=== PATIENT | female | born 1975 | race Caucasian/White ===

== ENCOUNTER 2016-10-20 15:35 | Emergency (ER) | payer OTHER ==
[~2016-10-20] VITALS: Ht 160 cm; Wt 40.0 kg
[2016-10-20 15:37] VITALS: Ht 160 cm; Wt 40.0 kg
--- NOTE | 2016-10-20 15:56 | EMERGENCY ROOM VISIT NOTE ---
History Report prepared by Iman: Li Banks Under the Supervision of: Dr. Jose Angel Lima M.D. First contact with patient: 15:40 Chief Complaint: SWELLING TO EXTREMITY Stated Complaint: SWOLLEN ANKLES, COUGH, SOB History of Present Illness The patient is a 41 year old female who presents to the Emergency Room with complaints of persistent bilateral ankle swelling that began two days ago. The patient states that three days ago she got a sunburn to her bilateral legs. She reports that the next day she woke up with pain to her bilateral ankles and then developed the swelling. The patient denies any past medical history of diabetes, congestive heart failure, UT, thyroid issue, asthma, PE, DVT, or COPD. She denies any recent increase in salt intake, change in medication or diet, or recent travel. The patient states that she is a smoker. She reports a recent weight gain over the last few weeks, but does state that she has eaten more than usual. The patient reports a family history of diabetes. She notes a history of a lymph node removed from her right groin as a child. She denies any recent fever, but states that the day she obtained the sunburn she additionally had chills. The patient reports that she does not urinate often and denies any change in urination. Source of History: patient Onset: two days ago Position: ankle (bilateral) Quality: other (swelling) Timing: other (persistent) Associated Symptoms: + chills, No fevers Note: Associated Symptoms: recent sunburn Review of Systems See HPI for pertinent positives & negatives. A total of 10 systems reviewed and were otherwise negative. Past Medical & Surgical Medical Problems: (1) Bronchitis Family History Cancer Diabetes mellitus FH: heart disease FHx: gallbladder disease FHx: lung disease Hypertension Kidney disease Kidney stones Seizures Social History Smoking Status: Current Every Day Smoker Alcohol Use: none Marital Status: single Occupation Status: employed Current/Historical Medications No Active Prescriptions or Reported Meds Allergies Coded Allergies: No Known Allergies (Unverified , 10/20/16) Physical Exam Vital Signs Date Time Temp Pulse Resp B/P (MAP) Pulse Ox O2 Delivery O2 Flow Rate FiO2 10/20/16 16:59 67 18 128/72 97 Room Air 10/20/16 15:37 36.8 111 16 141/84 95 Room Air Physical Exam GENERAL: Patient is in no acute distress. HEENT: No acute trauma, normocephalic atraumatic, mucous membranes moist, no nasal congestion, no scleral icterus. NECK: No stridor, no adenopathy, no meningismus, trachea is midline. LUNGS: Clear to auscultation bilaterally, no wheeze, no rhonchi, breath sounds equal. HEART: Without murmurs gallops or rubs, regular rate and rhythm. ABDOMEN: Soft, nontender, bowel sounds positive, no hernias, no peritonitis. EXTREMITIES: Mild bilateral pedal edema, no evidence of acute trauma. NEUROLOGIC: Oriented x 3, no acute motor or sensory deficits, no focal weakness. SKIN: First degree sun burn to lower extremities bilaterally. No jaundice or cellulitis. Medical Decision & Procedures ER Provider Diagnostic Interpretation: US results as stated below per my review and radiologist interpretation: ULTRASOUND VENOUS DOPPLER LWR EXT BILA CLINICAL HISTORY: Bilateral leg swelling COMPARISON STUDY: February 2007 FINDINGS: Real-time and color flow Doppler imaging were performed. Flow was seen within the femoral, popliteal and calf veins with no intraluminal thrombus demonstrated. The saphenous vein is patent. IMPRESSION: No evidence of lower extremity DVT. Electronically signed by: Stewart Valencia M.D. 10/20/2016 4:39 PM Dictated Date/Time: 10/20/2016 4:39 PM Laboratory Results 10/20/16 16:05 10/20/16 16:05 Test 10/20/16 15:57 10/20/16 16:05 Urine Color YELLOW Urine Appearance CLEAR (CLEAR) Urine pH 6.5 (4.5-7.5) Urine Specific [place] 1.013 (1.000-1.030) Urine Protein NEG (NEG) Urine Glucose (UA) NEG (NEG) Urine Ketones NEG (NEG) Urine Occult Blood 2+ (NEG) Urine Nitrite NEG (NEG) Urine Bilirubin NEG (NEG) Urine Urobilinogen NEG (NEG) Urine Leukocyte Esterase NEG (NEG) Urine WBC (Auto) 1-5 /hpf (0-5) Urine RBC (Auto) 0-4 /hpf (0-4) Urine Hyaline Casts (Auto) 1-5 /lpf (0-5) Urine Epithelial Cells (Auto) 10-20 /lpf (0-5) Urine Bacteria (Auto) NEG (NEG) Urine Test NEG (NEG) Red Blood Count 4.37 M/uL (4.2-5.4) Mean Corpuscular Volume 98.2 fL (80-100) Mean Corpuscular Hemoglobin 33.0 pg (25-34) Mean Corpuscular Hemoglobin Concent 33.6 g/dl (32-36) RDW Standard Deviation 46.8 fL (36.4-46.3) RDW Coefficient of Variation 12.9 % (11.5-14.5) Mean Platelet Volume 8.5 fL (7.4-10.4) Anion Gap 8.0 mmol/L (3-11) Est Creatinine Clear Calc Drug Dose 58.0 ml/min Estimated GFR () 106.3 Estimated GFR (Non- 91.7 BUN/Creatinine Ratio 16.2 (10-20) Calcium Level 8.4 mg/dl (8.5-10.1) Total Bilirubin 0.2 mg/dl (0.2-1) Aspartate Amino Transf (AST/SGOT) 15 U/L (15-37) Alanine Aminotransferase (ALT/SGPT) 19 U/L (12-78) Alkaline Phosphatase 58 U/L (45-117) Total Protein 7.6 gm/dl (6.4-8.2) Albumin 4.0 gm/dl (3.4-5.0) Globulin 3.6 gm/dl (2.5-4.0) Albumin/Globulin Ratio 1.1 (0.9-2) Thyroid Stimulating Hormone (TSH) 0.705 uIu/ml (0.300-4.500) Laboratory results reviewed by me. ED Course 1543: The patient was evaluated in room A3. A complete history and physical exam was performed. 1709: I reevaluated the patient and she is doing well. I discussed the exam findings with her and I discussed the treatment plan. She verbalized complete understanding and agreement. She is ready to go home. Medical Decision The patient is a 41 year old female who presents to the ED with complaints of bilateral ankle swelling. Differential diagnoses considered include thyroid disorder, UTI, renal failure, electrolyte imbalance, edema, venous insufficiency , DVT. There is no leukocytosis or concerning anemia. No significant electrolyte abnormality, kidney failure or hepatitis. The patient appears to be in a euthyroid state. Urinalysis does not show infection. testing is negative. Bilateral lower extremity ultrasound shows no evidence for DVT. On exam, the patient was not toxic or febrile. The patient's edema is likely just from the sunburn, she was reassured. She is being discharged to avoid salt in the diet, elevation of the legs was suggested. If worsening, she can return. Medication Reconciliation: I attest that I have personally reviewed the patient' s current medication list and she is not currently on any medications. Blood Pressure Screening: Patient was found to have normal blood pressure on screening and does not require follow-up. Impression Primary Impression: Pedal edema Additional Impression: Sunburn Scribe Attestation The scribe's documentation has been prepared under my direction and personally reviewed by me in its entirety. I confirm that the note above accurately reflects all work, treatment, procedures, and medical decision making performed by me. Departure Information Dispostion Home / Self-Care Prescriptions No Active Prescriptions or Reported Meds Referrals No Doctor, Assigned (PCP) Forms HOME CARE DOCUMENTATION FORM, IMPORTANT VISIT INFORMATION Patient Instructions My [facility] [employer] Additional Instructions avoid salt in the diet try to stay off of the feet and keep the legs elevated lab testing and imaging was all ok today Problem Qualifiers
[2016-10-20 16:09] LABS: URINE APPEARANCE CLEAR (CLEAR); URINE BILIRUBIN NEG (NEG); URINE COLOR YELLOW; URINE NITRITE NEG (NEG); URINE PH 6.5 (4.5-7.5); URINE SPECIFIC GRAVITY 1.013 (1.000-1.030); UROBILINOGEN NEG (NEG)
[2016-10-20 16:10] LABS: MANUAL MICROSCOPIC REQUIRED? NO; REVIEW REQ? NO
[2016-10-20 16:15] LABS: HEMATOCRIT 42.9 % (37-47); MEAN CELL VOLUME 98.2 fL (80-100); MEAN CORPUSCULAR HGB CONC 33.6 g/dl (32-36); MEAN PLATELET VOLUME 8.5 fL (7.4-10.4); PLATELET COUNT 240 K/uL (130-400); RED BLOOD COUNT 4.37 M/uL (4.2-5.4); WHITE BLOOD COUNT 8.66 K/uL (4.8-10.8)
[2016-10-20 16:31] LABS: BUN/CREATININE RATIO 16.2 (10-20); CALCIUM 8.4 mg/dl (8.5-10.1); CREATININE 0.79 mg/dl (0.60-1.20); POTASSIUM 3.7 mmol/L (3.5-5.1)
--- NOTE | 2016-10-20 16:41 | DIAGNOSTIC IMAGING REPORT ---
ULTRASOUND VENOUS DOPPLER LWR EXT BILA CLINICAL HISTORY: Bilateral leg swelling COMPARISON STUDY: February 2007 FINDINGS: Real-time and color flow Doppler imaging were performed. Flow was seen within the femoral, popliteal and calf veins with no intraluminal thrombus demonstrated. The saphenous vein is patent. IMPRESSION: No evidence of lower extremity DVT. Electronically signed by: Stewart Valencia M.D. 10/20/2016 4:39 PM Dictated Date/Time: 10/20/2016 4:39 PM
[2016-10-20 16:42] LABS: ALB/GLOB RATIO 1.1 (0.9-2); THYROID STIMULATING HORMONE 0.705 uIu/ml (0.300-4.500)
[2016-10-20 17:50] VITALS: BP 122/85; PULSE 63; TEMP 36.8; O2SAT 95
== END 2016-10-20 17:49 | disposition home or self-care (01) ==
LOC: C.EDB 15:36 → C.EDA 17:49
DX: R60.0 Localized edema (principal); L55.0 Sunburn of first degree; F17.200 Nicotine dependence, unspecified, uncomplicated; Z87.09 Personal history of other diseases of the respiratory system; Z98.890 Other specified postprocedural states; Z83.3 Family history of diabetes mellitus; Z82.49 Family history of ischemic heart disease and other diseases of the circulatory system; Z84.1 Family history of disorders of kidney and ureter; Z82.0 Family history of epilepsy and other diseases of the nervous system

== ENCOUNTER 2017-01-31 16:36 | Emergency (ER) | payer SELFPAY ==
[~2017-01-31] VITALS: Ht 160 cm; Wt 40.0 kg
[2017-01-31 16:38] VITALS: TEMP 37.1; Ht 160 cm; Wt 40.0 kg
[2017-01-31] MEDS ORDERED: PRVHFAIN INH (16:52)
[2017-01-31] MEDS ORDERED: IBUPROFEN 600 MG TAB PO STA (17:37)
--- NOTE | 2017-01-31 17:52 | DIAGNOSTIC IMAGING REPORT ---
R FOOT MIN 3 VIEWS ROUTINE CLINICAL HISTORY: right foot pain - hit by a door trauma COMPARISON: None. DISCUSSION: The bones and joint spaces appear intact. There is no evidence of fracture, dislocation or bony disease. There is no evidence for soft tissue swelling. IMPRESSION: Negative study. The above report was generated using voice recognition software. It may contain grammatical, syntax or spelling errors. Electronically signed by: Manuel Archibald M.D. 01/31/2017 5:50 PM Dictated Date/Time: 01/31/2017 5:50 PM
--- NOTE | 2017-01-31 17:53 | DIAGNOSTIC IMAGING REPORT ---
R ANKLE MIN 3 VIEWS ROUTINE CLINICAL HISTORY: Right ankle pain trauma. Pain. COMPARISON: None. DISCUSSION: The bones and joint spaces appear intact. There is no evidence of fracture, dislocation or bony disease. There is no evidence for soft tissue swelling. IMPRESSION: Negative study. The above report was generated using voice recognition software. It may contain grammatical, syntax or spelling errors. Electronically signed by: Manuel Archibald M.D. 01/31/2017 5:51 PM Dictated Date/Time: 01/31/2017 5:51 PM
--- NOTE | 2017-01-31 18:07 | EMERGENCY ROOM VISIT NOTE ---
ED Visit Note First contact with patient: 16:55 CHIEF COMPLAINT: Foot pain HISTORY OF PRESENT ILLNESS: This 42-year-old female patient presents to the emergency department, ambulatory, complaining of swelling and pain in the right foot at rest and worse with weight bearing. The patient states she was at home, assisting EMS and PD by opening a heavy front door this morning. She states when she opened the door, it hit her right foot and scraped the top of her foot. She states a few hours later, she noticed that she was experiencing pain in the right foot. She states the pain is worse with palpation, but now is also experiencing pain up into the lubin and into the foot. The patient rates the pain as excruciating and 10/10. The patient has not had relief of the pain with OTC Tylenol and Advil. The patient is able to walk, but states this significantly worsens her pain. No numbness or weakness. There are no lacerations of the foot. The patient is able to move all of their toes and their ankle, but this does cause pain. No previous fracture to this foot. REVIEW OF SYSTEMS: GENERAL: A 6 system review of systems was completed with positives and pertinent negatives in the HPI. ALLERGIES: None MEDICATIONS: Albuterol PMH: Asthma SOCIAL HISTORY: The patient lives locally. She admits to smoking one pack of cigarettes per day. She also admits to heavy marijuana use. The patient denies any alcohol use. PHYSICAL EXAM: Vital Signs: Reviewed Nurse's notes, vital signs stable. GENERAL : This is a 42-year-old female, in no acute distress, but appears in pain, well- developed, well-nourished. MUSCULOSKELATAL: There is no visual deformity of the right foot. There is no erythema or ecchymosis. There is no warmth. There is tenderness and swelling over the entire right foot and ankle on palpation. The patient withdraws significantly from pain on even the slightest touch. There is severe tenderness over the lateral or medial malleolus. There is tenderness of the tib/fib. The range of motion of the foot, ankle, knee, toes is significantly limited secondary to pain. There is no tenderness over the plantar fascia. The skin is intact and there are no lacerations or puncture wounds. Dorsalis pedis pulse 2+. Capillary refill less than 2 seconds. Examination completely normalized after 600 mg ibuprofen. The patient states she is feeling significantly better and has full range of motion and no more tenderness on palpation. RADIOLOGY: X-Ray Right Ankle: R ANKLE MIN 3 VIEWS ROUTINE CLINICAL HISTORY: Right ankle pain trauma. Pain. COMPARISON: None. DISCUSSION: The bones and joint spaces appear intact. There is no evidence of fracture, dislocation or bony disease. There is no evidence for soft tissue swelling. IMPRESSION: Negative study. X-Ray Right Foot: R FOOT MIN 3 VIEWS ROUTINE CLINICAL HISTORY: right foot pain - hit by a door trauma COMPARISON: None. DISCUSSION: The bones and joint spaces appear intact. There is no evidence of fracture, dislocation or bony disease. There is no evidence for soft tissue swelling. IMPRESSION: Negative study. X-Ray Right Tib/Fib: Pt. refused. EMERGENCY DEPARTMENT COURSE: I examined the patient. An X-ray of the right ankle and foot was reviewed by myself and radiologist and reveals acute fracture or bony abnormality. The patient was given 600 mg ibuprofen and notes 100% improvement in her symptoms. The patient was placed in a postop shoe and instructed on the use of crutches. The patient was discharged home in good condition. I attest that I have personally reviewed the patient's current medication list. Patient was found to have normal blood pressure on screening and does not require follow-up. DIAGNOSIS: Right Foot contusion TREATMENT: ORTHOPEDIC INSTRUCTIONS: Ibuprofen(Motrin, Advil) may be used for fever or pain. Use 600mg every six hours as needed. Take with food. Avoid using more than 2400mg in a 24 hour period. Do not use 2400mg per day for more than three consecutive days without physician direction. Prolonged inappropriate use can lead to stomach upset or ulcers. (AND/OR) Acetaminophen(Tylenol) may be used for fever or pain. Use 1000mg every six hours as needed. Avoid using more than 3000mg in a 24 hour period. Ice compresses for 20 minutes at a time four times daily for 2-3 days. Use the crutches as instructed. Rest and elevate your injury. Wear the walking boot and use crutches to avoid weight-bearing until it becomes tolerable. Please follow-up with orthopedics if no improvement in 2-3 days. Return to the ER immediately for any numbness, tingling, severe pain, extreme swelling in the extremity or as needed. Call [facility], [phone], if necessary, to arrange follow up for your injury. Follow-up with your primary care physician in 2 to 3 days for a recheck of your current condition. Problem List Medical Problems: (1) Bronchitis Status: Resolved Current/Historical Medications Scheduled PRN Albuterol (Ventolin Hfa), 2 PUFFS INH UD PRN for SOB/Wheezing Allergies Coded Allergies: No Known Allergies (Unverified , 10/20/16) Vital Signs Date Time Temp Pulse Resp B/P (MAP) Pulse Ox O2 Delivery O2 Flow Rate FiO2 01/31/17 18:43 76 18 140/68 96 01/31/17 16:38 37.1 91 18 137/79 95 Room Air Medications Administered Medications (Trade) Dose Ordered Sig/Ole Route Start Time Stop Time Status Last Admin Dose Admin Ibuprofen (Motrin Tab) 600 mg NOW STAT PO 01/31/17 17:37 01/31/17 17:38 DC 01/31/17 17:44 600 MG Departure Information Impression Primary Impression: Contusion of foot Dispostion Home / Self-Care Condition GOOD Referrals No Doctor, Assigned (PCP) Patient Instructions ED Contusion Foot, [facility] Additional Instructions ORTHOPEDIC INSTRUCTIONS: Ibuprofen(Motrin, Advil) may be used for fever or pain. Use 600mg every six hours as needed. Take with food. Avoid using more than 2400mg in a 24 hour period. Do not use 2400mg per day for more than three consecutive days without physician direction. Prolonged inappropriate use can lead to stomach upset or ulcers. (AND/OR) Acetaminophen(Tylenol) may be used for fever or pain. Use 1000mg every six hours as needed. Avoid using more than 3000mg in a 24 hour period. Ice compresses for 20 minutes at a time four times daily for 2-3 days. Use the crutches as instructed. Rest and elevate your injury. Wear the walking boot and use crutches to avoid weight-bearing until it becomes tolerable. Please follow-up with orthopedics if no improvement in 2-3 days. Return to the ER immediately for any numbness, tingling, severe pain, extreme swelling in the extremity or as needed. Call [facility], [phone], if necessary, to arrange follow up for your injury. Follow-up with your primary care physician in 2 to 3 days for a recheck of your current condition. Problem Qualifiers Primary Impression: Contusion of foot Encounter type: initial encounter Laterality: right Qualified Codes: S90.31XA - Contusion of right foot, initial encounter
[2017-01-31 18:43] VITALS: BP 140/68; PULSE 76; O2SAT 96
== END 2017-01-31 18:46 | disposition home or self-care (01) ==
LOC: C.EDB 16:37 → C.EDD 18:46
DX: S90.31XA Contusion of right foot, initial encounter (principal); W22.8XXA Striking against or struck by other objects, initial encounter; Y93.89 Activity, other specified; Y99.8 Other external cause status; J45.909 Unspecified asthma, uncomplicated; F17.210 Nicotine dependence, cigarettes, uncomplicated